=== PATIENT | female | born 1975 | race Caucasian/White ===

== ENCOUNTER 2018-12-30 12:46 | Emergency (ER) | payer OTHER ==
--- NOTE | 2018-12-30 12:50 | EDPHY ---
H & P Source: Patient - Personal History Tetanus Vaccine Date: 09/01 - Medical/Surgical History Other PMH: Past medical history: Sacroiliitis - Family History Significant Family History: No pertinent family hx - Social History Smoking Status: Never smoked Time Seen by Provider: 12/30/18 12:47 HPI/ROS: CHIEF COMPLAINT: Referred to ED for abnormal outpatient MRI HISTORY OF PRESENT ILLNESS: The patient is referred to the emergency department after she had an outpatient MRI which demonstrated an infection involving the right sacroiliac joint. The patient has been struggling with various right-sided complaints of back and hip pain over past 10 weeks. She has had a lumbar spine injection in 3 injections into the right sacroiliac joint. Given her ongoing pain she sought a 2nd opinion and was evaluated by physician who performed a new MRI which demonstrated inflammatory changes and fluid collection in the right sacroiliac region. The patient reportedly had normal inflammatory markers as an outpatient within the past several days but was referred to the ED for further evaluation. The patient denies any acute numbness or weakness. She does not complain of pain in the right sacroiliac joint but tends to complain of pain in the right gluteal area. She denies any numbness or weakness. She denies fever or additional acute complaints. REVIEW OF SYSTEMS: A comprehensive 10 point review of systems is otherwise negative aside from elements mentioned in the history of present illness. (Chuck Juárez) - Physical Exam Exam: General Appearance: Alert, no distress Eyes: Pupils equal and round no pallor or injection ENT, Mouth: Mucous membranes moist Respiratory: There are no retractions, lungs are clear to auscultation Cardiovascular: Regular rate and rhythm Gastrointestinal: Abdomen is soft and nontender, no masses, bowel sounds normal Neurological: A&O, normal motor function, normal sensory exam, normal cranial nerves Skin: No erythema or fluctuance appreciated on exam Musculoskeletal: Tenderness to palpation along the right posterior gluteal area. Extremities: Patient does have painful active and passive range of motion involving the right hip at full extremes of motion however has no significant tenderness with internal and external rotation of the hip. I am able to load the hip without significant discomfort. (Chuck Juárez) Constitutional: Initial Vital Signs Temperature (C) 37.0 C 12/30/18 12:53 Heart Rate 110 H 12/30/18 12:53 Respiratory Rate 16 12/30/18 12:53 Blood Pressure 135/99 H 12/30/18 12:53 O2 Sat (%) 99 12/30/18 12:53 O2 Delivery Mode Room Air Allergies/Adverse Reactions: No Known Allergies Allergy (Unverified 07/08/11 10:25) Home Medications: Medication Instructions Recorded NK [No Known Home Meds] 12/30/18 Medical Decision Making ED Course/Re-evaluation: I reviewed the patient's MRI with Dr. Luna. I did consult with Dr. Teo Alba from Infectious Disease. Patient is nontoxic well-appearing. She is neurologically intact. Patient does seem appropriate for outpatient management. Dr. Alba has requested the patient undergo aspiration and have fluid sent for routine cultures, fungal and AFB testing. He recommends withholding antibiotic therapy pending the results of those studies. The patient can see him in the office tomorrow at 2:00 p.m.. (Chuck Juárez) I took over care of this patient at 2:00 p.m.. Triage vital signs reviewed. She is mildly tachycardic. She is afebrile. Vital signs are otherwise unremarkable. This patient is here for a sacroiliitis with infection. Her MRI of this region was just done this morning and indicates infection and likely a small abscess. She is currently getting her SI joint aspirated by interventional radiology, Dr. Durbin. Please see Dr. Juárez note for further details. He has consulted with infectious disease specialist Dr. Teo Alba. Plan at this time is to discharge the patient after aspiration procedure without antibiotics. All appropriate cultures have been ordered. The patient will then follow up with Dr. Teo Alba in the office tomorrow. I will consult again with Dr. Teo Alba after discussing her procedure and immediate findings with Dr. Durbin. 2:35 p.m., spoke with Dr. Durbin. He he described the fluid as being synovial looking, more cloudy than expected but not melody pus. He questions whether it is infectious. Sample sent for stains and culture. Dr. Teo Alba of Infectious Disease paged. 3:00 p.m., discussed case with Dr. Teo Alba in the emergency department. He also evaluated this patient in the emergency department. We will wait on results of Gram stain which should be obtained shortly before deciding treatment course and disposition. 4:00 p.m., discussed case again with Dr. Teo Alba of the Infectious Disease service. We both reviewed the patient's Gram stain and cell counts. The patient has remained afebrile. Dr. Alba has ordered a dose of daptomycin to be given in the emergency department. He is requesting the patient then be discharged. He has arranged for repeat dose of daptomycin for tomorrow and Tuesday. He will then see the patient in his clinic on Tuesday of this week. This plan was reviewed with the patient. She feels comfortable being discharged. She understands for follow-up. Return to emergency department precautions reviewed with her. All of her questions were answered. She was discharged from the emergency department in good condition. (All Pollock) Differential Diagnosis: Differential diagnosis considered includes sacroiliitis, subcutaneous abscess, epidural abscess (Chuck Juárez) - Data Points Laboratory Results: Laboratory Results 12/30/18 13:00 12/30/18 13:00 12/30/18 12/30/18 12/30/18 14:00 13:00 13:00 WBC 7.11 10^3/uL 10^3/uL (3.80-9.50) RBC 3.99 10^6/uL L 10^6/uL (4.18-5.33) Hgb 13.5 g/dL g/dL (12.6-16.3) Hct 40.6 % % (38.0-47.0) MCV 101.8 fL H fL (81.5-99.8) MCH 33.8 pg pg (27.9-34.1) MCHC 33.3 g/dL g/dL (32.4-36.7) RDW 12.9 % % (11.5-15.2) Plt Count 280 10^3/uL 10^3/uL (150-400) MPV 9.1 fL fL (8.7-11.7) Neut % (Auto) 67.4 % % (39.3-74.2) Lymph % (Auto) 25.5 % % (15.0-45.0) [place] % (Auto) 5.8 % % (4.5-13.0) Eos % (Auto) 0.7 % % (0.6-7.6) Baso % (Auto) 0.3 % % (0.3-1.7) Nucleat RBC Rel Count 0.0 % % (0.0-0.2) Absolute Neuts (auto) 4.80 10^3/uL 10^3/uL (1.70-6.50) Absolute Lymphs (auto) 1.81 10^3/uL 10^3/uL (1.00-3.00) Absolute Monos (auto) 0.41 10^3/uL 10^3/uL (0.30-0.80) Absolute Eos (auto) 0.05 10^3/uL 10^3/uL (0.03-0.40) Absolute Basos (auto) 0.02 10^3/uL 10^3/uL (0.02-0.10) Absolute Nucleated RBC 0.00 10^3/uL 10^3/uL (0-0.01) Immature Gran % 0.3 % % (0.0-1.1) Immature Gran # 0.02 10^3/uL 10^3/uL (0.00-0.10) ESR 37 MM/HR H MM/HR (0-20) Sodium 138 mEq/L mEq/L (135-145) Potassium 4.0 mEq/L mEq/L (3.5-5.2) Chloride 102 mEq/L mEq/L (97-110) Carbon Dioxide 21 mEq/l L mEq/l (22-31) Anion Gap 15 mEq/L H mEq/L (6-14) BUN 21 mg/dL mg/dL (7-23) Creatinine 0.8 mg/dL mg/dL (0.6-1.0) Estimated GFR > 60 Glucose 81 mg/dL mg/dL (70-100) Calcium 9.6 mg/dL mg/dL (8.5-10.4) C-Reactive Protein 156.0 mg/L H mg/L (<10.0) Synovial Source SYNOVIAL Synovial Color PINK H (CLS/PALE YL) Synovial Appearance HAZY H (CLEAR) Synovial WBC 261 /mm3 H /mm3 (0-150) Synovial RBC 50200 /mm3 H /mm3 (0-0) Synovial Neutrophils 93 % H % (0-25) Synovial Lymphocytes 7 % % Microbiology Results: MICROBIOLOGY 12/30/18 14:00 Back - Aspirate Gram Stain - Final Departure - Departure Disposition: Home, Routine, Self-Care Clinical Impression: Sacroiliac inflammation Condition: Good Instructions: Sacroiliitis (ED) Additional Instructions: Follow-up with Dr. Teo Alba as scheduled on Tuesday for re-evaluation and further management. Returned to the hospital tomorrow, check in through the emergency department and then you are to go [facility] [place] [facility] your dose of IV antibiotics. This will be rescheduled from 1:00 p.m. to 3:00 p.m. As you requested. Return to the hospital on Tuesday and go directly to [facility] for your schedule dose of IV antibiotics. Return to the emergency department immediately for worsening pain, fever or other serious concerns. Referrals: Cassi Torres MD [Primary Care Provider] - As per Instructions Teo Alba MD [Medical Doctor] - As per Instructions
[2018-12-30 13:10] LABS: PLATELET COUNT 280 10^3/uL (150-400)
[2018-12-30] MEDS ORDERED: LIDOCAINE 1% 300 MG/30 ML SDV ONE (13:28)
[2018-12-30] MEDS ORDERED: DAPTOmycin 350 MG in NS 100 ML IV ONE (15:56)
[2018-12-30 17:35] VITALS: BP 122/78
--- NOTE | 2018-12-30 22:03 | GCON ---
[f rep st] CONSULTATION INFECTIOUS DISEASES CONSULTATION DATE OF CONSULTATION: 12/30/2018 REFERRING PHYSICIAN: Chuck Juárez MD REASON FOR CONSULTATION: Right septic sacroiliac joint. HISTORY OF PRESENT ILLNESS: The patient is a 43-year-old female without significant past medical history who developed right-sided sacroiliac pain after she went on a run approximately 10 weeks ago. Her pain persisted and was originally felt to be lumbosacral in etiology based on disk disease noted on MRI. She was referred for injection of her lumbosacral spine, at which point in time, her pain was felt to be emanating more from her right sacroiliac joint ; therefore, she underwent steroid injection of the right SI joint. This led to improved symptoms for approximately 48 hours. Given the question of lumbosacral etiology, she subsequently underwent injection into the lumbosacral region with steroid without improvement. Her pain persisted, and she ultimately required additional injection into the right sacroiliac joint with improved pain over a several-week period; however, the pain did not ultimately resolve. She did not have fevers, chills, or night sweats. No unusual travel history. No ingestion of unpasteurized dairy products or cheeses. She was seen in consultation at [facility] yesterday, at which point in time, blood work revealed elevated inflammatory markers. She describes having an MRI of the hip, which raised some concerns about inflammation in the sacroiliac region. She subsequently had MRI of the pelvis earlier today, which showed findings concerning for septic sacroiliac joint. These findings included bone marrow edema with enhancement and erosive change in the right sacroiliac joint with joint fluid distention and abnormal enhancement, consistent with septic sacroiliac joint. A 1.5 cm fluid collection was noted extending anteriorly from the SI joint inferiorly with some mass effect on the sacral plexus measuring 1.5 cm, raising possibility of small abscess. These findings prompted further evaluation in the emergency department today, at which point in time, lab testing showed a normal white blood cell count with a C-reactive protein of 156. She subsequently underwent aspiration of the SI joint with return of cloudy fluid. Gram stain has shown 4+ white blood cells with no organisms being seen. Cell count of the synovial fluid showed 261 white blood cells with 91748 red blood cells with 93% neutrophils. Blood cultures were obtained. Given the above findings, I am now asked to assist in her ongoing management. PAST MEDICAL HISTORY: Unremarkable. PAST SURGICAL HISTORY: None. CURRENT MEDICATIONS: None. ALLERGIES: No known drug allergies. SOCIAL HISTORY: Patient does not smoke. She drinks wine on a regular basis. No drug use. She works in [employer]. No recent travel. FAMILY HISTORY: No family history of sacroiliitis. REVIEW OF SYSTEMS: Outside that noted in the HPI, remainder of a 10-system review is unremarkable. No urinary retention. PHYSICAL EXAMINATION: VITAL SIGNS: Temperature 37.0, heart rate 81, respiratory rate 16, blood pressure 128/81, oxygen saturation 97% on room air. GENERAL: Patient is well nourished, well developed, no acute distress. She appears nontoxic. HEENT: There is no scleral icterus, conjunctival injection, or conjunctival petechiae. Oropharynx shows moist mucous membranes with dentition being in good repair. No nasal discharge. No sinus tenderness. NECK : Supple without palpable lymphadenopathy or thyromegaly. CHEST: Clear to auscultation bilaterally without adventitious sounds. The respiratory effort is normal. CARDIOVASCULAR: Regular rate and rhythm without murmurs, gallops, or rubs. ABDOMEN: Soft, nontender, nondistended. No palpable organomegaly. Bowel sounds are present. MUSCULOSKELETAL: No cyanosis, clubbing, or edema. No point tenderness over the spine. Mild tenderness over the right SI region. No irritability with range of motion of the hip. SKIN: No rashes present. No stigmata of endocarditis. Skin is warm and dry to touch. NEUROLOGIC: Patient is alert and interacts appropriately with examiner. Cranial nerves 2-12 are grossly intact. Sensation is grossly intact. LABORATORY DATA: White blood cell count 7.1, hematocrit 40.6, platelets 280, neutrophils 67%, lymphocytes 25%, ESR 37, serum creatinine 0.8, C-reactive protein 156. Synovial fluid and Gram stain as outlined above. Blood cultures x2 are pending. MRI as outlined above, which was reviewed and interpreted by me today. IMPRESSION: 1. Probable right-sided septic sacroiliac joint: Clinical findings and radiographic findings most compatible with septic arthritis of the right sacroiliac joint. Synovial fluid does not show markedly elevated white blood cell count, although radiographically, findings highly suggestive of infectious etiology. Other consideration would include noninfectious inflammatory process , although degree of fluid within the joint seems atypical for an inflammatory process. Most likely pathogens in this setting would be Staphylococcus aureus or streptococcal species. Given the preceding steroid injections, the differential diagnosis is broad and to include gram-negative rods or other organisms such as fungi or mycobacteria. No history to suggest possibility of brucellosis. RECOMMENDATIONS: 1. Daptomycin 350 mg IV q.24 hours pending culture data. 2. Daptomycin will be administered on tomorr and Tuesday. 3. Follow up culture as available. 4. Have asked lab to hold fluid for PCR testing if cultures do not reveal etiology. 5. Consider evaluation for inflammatory etiologies if above findings negative. 6. Potential risk of myositis or hypersensitivity pneumonitis with use of daptomycin discussed with patient today. 7. Patient will follow up in my office on 01/02/2019 at 3:30. Thank you for this consultation. We will continue to follow the patient as an outpatient with modification of plan of care according to culture data and clinical course. /[id number]/MODL MTDD
== END 2018-12-30 17:50 | disposition home or self-care (01) ==
PROC: 0S973ZX Drainage of Right Sacroiliac Joint, Percutaneous Approach, Diagnostic (ICD-10-PCS; principal; 2018-12-30)
DX: M46.1 Sacroiliitis, not elsewhere classified (principal); E86.9 Volume depletion, unspecified
CPT/HCPCS: J0878

== ENCOUNTER → 2018-12-30 | Outpatient (CLI) | payer OTHER ==
[~2018-12-30] MED LIST: GADOBUTROL 10 ML VIAL IVP ONE
== END ==
LOC: FIMAGING 10:33
PROVIDERS: ATTEND Family Medicine Sports Medicine
DX: M89.8X8 Other specified disorders of bone, other site (principal); M51.36 Other intervertebral disc degeneration, lumbar region; M47.816 Spondylosis without myelopathy or radiculopathy, lumbar region; Z97.5 Presence of (intrauterine) contraceptive device
CPT/HCPCS: A9585

== ENCOUNTER → 2019-01-10 | Outpatient (CLI) | payer OTHER | LOC: EMCIMAGING 12:46 | PROVIDERS: ATTEND Internal Medicine Infectious Disease | DX: M46.58 Other infective spondylopathies, sacral and sacrococcygeal region (principal); Z79.2 Long term (current) use of antibiotics | CPT/HCPCS: 72197-PN ==